=== PATIENT | male | born 1940 | race Caucasian/White ===

== ENCOUNTER → 2016-09-13 | Outpatient (CLI) | payer MEDICARE ==
[2016-09-13 21:00] LABS: Basophils % (A) 1 %; CH 30.6; CHCM 33.6; Eosinophils # (A) 0.1 k/uL (0-0.7); Eosinophils % (A) 4 %; HCT 39.4 % (39.0-53.0); HDW 2.51; HGB 13.1 gm/dL (13.0-17.5); Luc # (Auto) 0.09; Luc % (Auto) 3; Lymphocytes # (A) 0.8 k/uL (1.0-4.8); Lymphocytes % (A) 21 %; MCH 30.4 pg (25.0-35.0); MCHC 33.3 g/dL (31.0-37.0); MCV 91.5 fL (80.0-100.0); Mean Platelet Volume 8.2; Monocytes # (A) 0.2 k/uL (0-1.0); Monocytes % (A) 6 %; Neutrophils # (A) 2.4 k/uL (1.3-7.7); Neutrophils % (A) 66 %; RBC 4.31 m/uL (4.30-5.90); RDW 13.1 % (11.5-15.5); WBC 3.6 k/uL (3.8-10.6); WBC (Perox) 3.66
[2016-09-13 21:09] LABS: Cholesterol 169 mg/dL (<200); HDL Cholesterol 48 mg/dL (40-60); Triglycerides 86 mg/dL (<150)
== END | disposition home or self-care (01) ==
LOC: MMGSC 10:30
PROVIDERS: ATTEND Family Medicine
DX: I10 Essential (primary) hypertension (principal); D64.89 Other specified anemias
CPT/HCPCS: 36415; 80061; 82378; 85025

== ENCOUNTER → 2016-09-13 | Outpatient (CLI) | payer MEDICARE | END | disposition home or self-care (01) | LOC: MMGSC 10:28 | DX: Z85.048 Personal history of other malignant neoplasm of rectum, rectosigmoid junction, and anus (principal) | CPT/HCPCS: 36415; 82378 ==

== ENCOUNTER → 2016-11-10 | Outpatient (CLI) | payer MEDICARE ==
[2016-11-10 20:17] LABS: ALT 38 U/L (21-72); AST 37 U/L (17-59); Alkaline Phosphatase 46 U/L (38-126); Anion Gap 14 mmol/L; Blood Urea Nitrogen 22 mg/dL (9-20); Carbon Dioxide 27 mmol/L (22-30); Chloride 103 mmol/L (98-107); Glucose 100 mg/dL (74-99); Non-African American GFR(MDRD) 59 (>60 ml/min/1.73 sqM); Potassium 4.7 mmol/L (3.5-5.1); Sodium 144 mmol/L (137-145); Total Bilirubin 0.9 mg/dL (0.2-1.3); Total Protein 7.8 g/dL (6.3-8.2); Uric Acid 7.8 mg/dL (3.5-8.5)
== END | disposition home or self-care (01) ==
LOC: MMGSC 11:11
PROVIDERS: ATTEND Family Medicine
DX: Z00.00 Encounter for general adult medical examination without abnormal findings (principal); R53.83 Other fatigue; M10.9 Gout, unspecified; I10 Essential (primary) hypertension
CPT/HCPCS: 36415; 80053; 84439; 84443; 84550

== ENCOUNTER → 2017-06-13 | Outpatient (CLI) | payer MEDICARE ==
[2017-06-13 18:17] LABS: Basophils % (A) 1 %; CH 30.1; Eosinophils # (A) 0.3 k/uL (0-0.7); Eosinophils % (A) 7 %; HCT 40.8 % (39.0-53.0); HGB 13.2 gm/dL (13.0-17.5); Luc # (Auto) 0.11; Luc % (Auto) 2; Lymphocytes % (A) 20 %; MCH 30.5 pg (25.0-35.0); MCHC 32.3 g/dL (31.0-37.0); MCV 94.5 fL (80.0-100.0); Mean Platelet Volume 8.7; Monocytes # (A) 0.3 k/uL (0-1.0); Monocytes % (A) 7 %; Neutrophils % (A) 63 %; RBC 4.32 m/uL (4.30-5.90); RDW 12.9 % (11.5-15.5); WBC 4.8 k/uL (3.8-10.6); WBC (Perox) 4.82
[2017-06-13 18:19] LABS: ALT 36 U/L (21-72); AST 32 U/L (17-59); Alkaline Phosphatase 47 U/L (38-126); Anion Gap 13 mmol/L; Blood Urea Nitrogen 27 mg/dL (9-20); Calcium 10.3 mg/dL (8.4-10.2); Carbon Dioxide 23 mmol/L (22-30); Chloride 102 mmol/L (98-107); Cholesterol 172 mg/dL (<200); Glucose 106 mg/dL (74-99); HDL Cholesterol 52 mg/dL (40-60); Non-African American GFR(MDRD) 54 (>60 ml/min/1.73 sqM); Sodium 138 mmol/L (137-145); Total Bilirubin 0.8 mg/dL (0.2-1.3); Total Protein 7.8 g/dL (6.3-8.2)
== END | disposition home or self-care (01) ==
LOC: MMGSC 09:56
PROVIDERS: ATTEND Family Medicine
DX: I10 Essential (primary) hypertension (principal); Z12.5 Encounter for screening for malignant neoplasm of prostate
CPT/HCPCS: 36415; 80053; 80061; 84153; 84439; 84443; 85025

== ENCOUNTER → 2022-02-23 | Outpatient (CLI) | payer MEDICARE ==
--- NOTE | 2022-02-23 13:11 | US ---
EXAMINATION TYPE: US venous doppler duplex LE RT DATE OF EXAM: 02/23/2022 1:00 PM COMPARISON: NONE CLINICAL HISTORY: R22.41 LOCALIZED SWELLING, MASS AND LUMP, RIGHT LO. right leg pain per patient. No t on blood thinners. No redness or swelling. SIDE PERFORMED: Right TECHNIQUE: The lower extremity deep venous system is examined utilizing real time linear array sonog brandi with graded compression, doppler sonography and color-flow sonography. VESSELS IMAGED: Common Femoral Vein Deep Femoral Vein Greater Saphenous Vein * Femoral Vein Popliteal Vein Small Saphenous Vein * Proximal Calf Veins (* superficial vessels) Right Leg: Negative for DVT Grayscale, color doppler, spectral doppler imaging performed of the deep veins of the right lower ext remity. There is normal flow, compressibility, vascular waveforms. IMPRESSION: No ultrasound evidence for acute DVT in the right lower extremity.
== END | disposition home or self-care (01) ==
LOC: RADUSWWP 12:38
PROVIDERS: ATTEND Family Medicine
DX: R22.41 Localized swelling, mass and lump, right lower limb (principal)